=== PATIENT | female | born 1940 | race Caucasian/White ===

== ENCOUNTER → 2017-01-02 13:21 | Outpatient (CLI) | payer MEDICARE | END | disposition home or self-care (01) | LOC: D.MRI 11:30 | DX: M54.32 Sciatica, left side (principal) ==

== ENCOUNTER → 2017-11-28 11:21 | Outpatient (CLI) | payer MEDICARE | END | disposition home or self-care (01) | LOC: D.MAMMO 11:15 | DX: M48.061 Spinal stenosis, lumbar region without neurogenic claudication (principal) ==

== ENCOUNTER → 2017-12-12 09:57 | Outpatient (CLI) | payer MEDICARE ==
--- NOTE | ~2017-12-12 | HEMODYNAMI ---
PATIENT:CHRISTIE BLISS MEDICAL RECORD: [id number] : 40 LOCATION:[facility] ADMISSION DATE: 12/12/17 Generatedon:12/12/201711:44 Patient name: CHRISTIE BLISS Patient #: [id number] SSN: : 1940 Date of study: 12/12/2017 Page: Of Hemodynamic Procedure Report Patient Data Patient Demographics Procedure consent was obtained First Name: CHRISTIE Gender: Female Last Name: RUTHY : 1940 [facility] Initial: DELMIS Age: 77 year(s) Patient #: [id number] Race: Unknown Additional ID: [id number] Contact details Address: [address] [place] [address] [place] State: [place] City: [place] Zip code: [address] Past Medical History Allergies Allergen Reaction Date Comments Reported Other allergy Other 12/12/2017 sulfa Admission Admission Data Admission Date: 12/12/2017 Admission Time: 9:57 Procedure Procedure Types Cath Procedure Peripheral Cath Diagnostic Procedure Miscellaneous Epidural Steroid Injection Procedure Description Procedure Date Procedure Date: 12/12/2017 Procedure Start Time: 10:44 Procedure Staff Name Function Josh Boyer MD Performing Physician Flora Stallings RN Nurse Celina Saldivar Monitor Procedure Data Cath Procedure Fluoroscopy Diagnostic fluoroscopy Total fluoroscopy Time: 0.1 time: 0.1 min min Diagnostic fluoroscopy Total fluoroscopy dose: 1 dose: 1 mGy mGy Contrast Material Contrast Material Type Amount (ml) Isovue 300 0 Hemodynamics Rest Pre Cath Intra NCS Post Cath Procedure Log Time Note 10:32:45 Diagnostic Cath Status : Elective 10:38:06 ----Pre-sedation anethsthesia assessment.---- 10:38:27 Family in waiting room. 10:38:29 Patient allergic to sulfa. 10:38:37 Patient NPO since Breakfast. 10:38:38 No sedation used for procedure. 10:38:51 Patient arrived from Other to IR. Patient placed pron on table for procedure. 10:39:01 Correct patient and procedure confirmed by team. 10:39:08 Signed procedure consent form obtained from patient. 10:39:12 Full Disclosure recording started 10:39:13 - 10:39:22 Alarms reviewed . 10:39:23 Warm blankets applied for patient comfort. 10:39:25 KIT EPIDURAL CATHETERIZATION opened to sterile field. 10:39:37 Sharps counted by scrub and verified . 10:39:51 Time tracking: Regular hours (M-F 7:00 - 5:00) 10:40:52 --------ALL STOP TIME OUT------ 10:40:52 Physician arrived 10:40:54 Final Timeout: patient, procedure, and site verified with staff and physician. All members of the team are in agreement. 10:40:58 Procedure started. 10:41:00 Lumbar site verified by team. 10:41:07 Lumbar was prepped with betadine and draped in sterile fashion. 10:41:31 Sedation plan: None Medication:Lidocaine 10:44:43 Local anesthetic to Lumbar area with Lidocaine 1% by Josh Boyer MD.INITIAL ACCESS ONLY 10:44:53 Dr. Boyer accessed the epidural space with a 22g. 3.[address] Boyer injected 5ml [place] for the steriod injection. 10:48:10 The spinal needle removed. 10:49:30 The site was stable. 10:50:56 Procedure ended.(Physican Out) 10:51:47 The site coverd with bandaid. 11:00:07 Fluoroscopy time 00.10 minutes. 11:00:30 Flurop Dose total: 1 11:00:31 Post Lumbar area:stable 11:00:41 Contrast amount: 0ml. 11:00:44 Post procedure instruction explained to patient.Patient verbalizes understanding. 11:05:58 Sharps counted by scrub and verified. 11:10:09 Patient transfered to Other with Ambulatory. 11:16:30 Fluoroscopy dose: 1 mGy Device Usage Item Name Manufacture Quantity Catalog Hospital Part Current [facility] l Lot# / Number Charge Number Stock Stock Serial# Code KIT EPIDURAL Teleflex 1 [id number] CATHETERIZATION Signature Audit [place] Stage Time Signature Unsigned Intra-Procedure 12/12/2017 Celina 11:43:59 AM Janna Signatures Monitor : Celina Signature : Janna Date : Time : [place] [id number] [place] [address]
== END | disposition home or self-care (01) ==
LOC: D.RAD 12-11 13:00
DX: M48.061 Spinal stenosis, lumbar region without neurogenic claudication (principal)

== ENCOUNTER → 2018-02-11 15:44 | Outpatient (CLI) | payer MEDICARE ==
[~2018-02-11 15:44] MED LIST: ACETAMINOPHEN325 MG PO; ASPIRIN325 MG PO; CARTIA XT180 MG PO; CRESTOR5 MG PO; CYMBALTA30 MG PO; GEMFIBROZIL600 MG PO; IMODIUM2 MG PO; MOBIC7.5 MG PO; NORCO 5/325 TAB1 TAB PO
== END | disposition home or self-care (01) ==
LOC: D.MRI 15:00
DX: M25.552 Pain in left hip (principal)

== ENCOUNTER 2018-02-12 19:37 | Emergency (ER) | payer MEDICARE ==
[~2018-02-12] VITALS: Ht 165.1 cm; Wt 63.6 kg
[2018-02-12 19:43] VITALS: Ht 165.1 cm; Wt 63.6 kg
[2018-02-12] MEDS ORDERED: CARTIA XT180 MG PO (19:46)
[2018-02-12] MEDS ORDERED: CRESTOR5 MG PO (19:46)
[2018-02-12] MEDS ORDERED: IMODIUM2 MG PO (19:46)
[2018-02-12] MEDS ORDERED: GEMFIBROZIL600 MG PO (19:46)
[2018-02-12] MEDS ORDERED: MOBIC7.5 MG PO (19:46)
[2018-02-12] MEDS ORDERED: CYMBALTA30 MG PO (19:46)
[2018-02-12] MEDS ORDERED: ACETAMINOPHEN325 MG PO (19:47)
[2018-02-12] MEDS ORDERED: ASPIRIN325 MG PO (19:47)
[2018-02-12] MEDS ORDERED: NORCO 5/325 TAB1 TAB PO (21:08)
[2018-02-12 21:57] VITALS: BP 132/67
== END 2018-02-12 22:01 | disposition home or self-care (01) ==
LOC: D.ER 19:37
DX: M25.551 Pain in right hip (principal); I10 Essential (primary) hypertension; F17.200 Nicotine dependence, unspecified, uncomplicated; W18.30XA Fall on same level, unspecified, initial encounter; Y93.89 Activity, other specified; Y92.015 Private garage of single-family (private) house as the place of occurrence of the external cause

== ENCOUNTER → 2018-03-14 09:05 | Outpatient (CLI) | payer MEDICARE ==
[2018-02-12 19:43] VITALS: BMI 23.3
--- NOTE | ~2018-03-14 | HEMODYNAMI ---
PATIENT:CHRISTIE BLISS MEDICAL RECORD: [id number] : 40 [id number] AD[facility]ION DATE: 03/14/18 Generatedon:03/14/201811:42 Patient name: CHRISTIE BLISS Patient #: [id number] SSN: : 1940 Date of study: 03/14/2018 Page: Of Hemodynamic Procedure Report Patient Data Patient Demographics Procedure consent was obtained First Name: CHRISTIE Gender: Female Last Name: RUTHY : 1940 [facility] Initial: DELMIS Age: 77 year(s) Patient #: [id number] Race: Unknown Additional ID: [id number] Contact details [address]: [address] [place] [address] [place] State: [place] City: [place] Zip code: [address] Past Medical History Allergies Allergen Reaction Date Comments Reported Other allergy Other 12/12/2017 sulfa Admission Admission Data Admission Date: 03/14/2018 Admission Time: 9:05 Procedure Procedure Types Cath Procedure Peripheral Cath Diagnostic Procedure Miscellaneous Procedure Description Procedure Date Procedure Date: 03/14/2018 Procedure Start Time: 11:17 Procedure Staff Name Function Andrzej Parkinson MD Performing Physician Nemesio Lobo RT Monitor Cinthia Haskins RT Scrub Flora Stallings RN Nurse Procedure Data Cath Procedure Fluoroscopy Diagnostic fluoroscopy Total fluoroscopy Time: 1.8 time: 1.8 min min Diagnostic fluoroscopy Total fluoroscopy dose: 24 dose: 24 mGy mGy Hemodynamics Rest Pre Cath Intra NCS Post Cath Procedure Log Time Note 11:02:24 Nemesio Lobo RT (R) (CV) sent for patient. Start room use. 11:02:50 Time tracking: Regular hours (M-F 7:00 - 5:00) 11:02:57 Patient received from Other to IR Alert and oriented. Tansferred to table in Prone position. 11:02:58 Correct patient and procedure confirmed by team. 11:03:01 Signed procedure consent form obtained from patient. 11:03:07 Full Disclosure recording started 11:03:08 Pre-procedure instructions explained to patient. 11:03:08 Pre-op teaching completed and patient verbalized understanding. 11:03:14 Is the patient allergic to Iodine/contrast media? No. 11:04:41 left Lumbar area was prepped with betadine and draped in sterile fashion 11:05:11 Bag Decanter () opened to sterile field. 11:05:11 Sterile Angiographic Pack opened to sterile field. 11:12:42 Physician arrived 11:12:43 --------ALL STOP TIME OUT------ 11:12:44 Final Timeout: patient, procedure, and site verified with staff and physician. All members of the team are in agreement. 11:12:50 Lumbar site verified by team. 11:12:56 Sedation plan: None Medication:Lidocaine 11:16:59 Procedure started. 11:17:04 Local anesthetic to Lumbar area with Lidocaine 1% by Andrzej Parkinson MD.INITIAL ACCESS ONLY 11:17:31 SAFE-T PLUS MYELOGRAM TRAY opened to sterile field. 11:38:38 Procedure ended.(Physican Out) 11:41:39 Fluoroscopy time 01.80 minutes. 11:41:52 Fluoroscopy dose: 24 mGy 11:41:52 Flurop Dose total: 24 11:42:15 bandaide applied and sight stable pt sent home Device Usage Item Name Manufacture Quantity Catalog Hospital Part Current Minimal Lot# / Number Charge Number Stock Stock Serial# Code Bag Decanter Microtek 1 [id number] () [employer] Sterile Cardinal 1 [id number] Angiographic Health Pack SAFE-T PLUS Care[employer]usion 1 [id number] MYELOGRAM TRAY Signature Audit [place] Stage Time Signature Unsigned Intra-Procedure 03/14/2018 Nemesio 11:42:30 AM Lashell RT (R) (CV) Signatures Monitor : Nemesio Signature : Lashell RT Date : Time : [place] [address]
== END | disposition home or self-care (01) ==
LOC: D.RAD 09:05
DX: M53.3 Sacrococcygeal disorders, not elsewhere classified (principal)

== ENCOUNTER 2019-01-23 08:00 | Outpatient (CLI) | payer MEDICARE ==
[2018-02-12 19:43] VITALS: BMI 23.3
== END 2019-01-23 23:59 | disposition home or self-care (01) ==
LOC: D.MAMMO 08:00
PROVIDERS: ATTEND Family Medicine
DX: Z12.31 Encounter for screening mammogram for malignant neoplasm of breast (principal)

== ENCOUNTER → 2019-02-19 12:00 | Outpatient (CLI) | payer MEDICARE ==
[2018-02-12 19:43] VITALS: BMI 23.3
== END | disposition home or self-care (01) ==
LOC: D.MAMMO 12:00
PROVIDERS: ATTEND Family Medicine
DX: R92.8 Other abnormal and inconclusive findings on diagnostic imaging of breast (principal)